=== PATIENT | male | born 1955 ===

== ENCOUNTER → 2020-05-09 | Outpatient (CLI) | payer OTHER ==
[~2020-05-09] MED LIST: GADOBUTROL 1 MMOL/ML 10 ML VIAL IVP ONE
== END | disposition home or self-care (01) ==
LOC: RADMN 09:07
PROVIDERS: ATTEND Internal Medicine Infectious Disease
DX: M48.061 Spinal stenosis, lumbar region without neurogenic claudication (principal); M46.26 Osteomyelitis of vertebra, lumbar region; M51.26 Other intervertebral disc displacement, lumbar region; A41.01 Sepsis due to Methicillin susceptible Staphylococcus aureus
CPT/HCPCS: 72158; A9585